=== PATIENT | female | born 1940 | race Caucasian/White ===

== ENCOUNTER 2020-09-13 14:04 | Emergency (ER) | payer OTHER ==
[~2020-09-13] VITALS: Ht 157.5 cm; Wt 89.8 kg
[~2020-09-13 14:04] MED LIST: DESPEC-DM TABL1 EACH PO; DOLOGEN CAPLET1 TAB PO; GILTUSS LIQUID237 M1 PO; ORPH100T PO; TUSSI-PRES LIQ118 ML PO; ULTRAM50 MG PO; ZITHROMAX500 MG PO
== END 2020-09-13 17:54 | disposition home or self-care (01) ==
LOC: ER 14:04
DX: S90.02XA Contusion of left ankle, initial encounter (principal); W06.XXXA Fall from bed, initial encounter; Y93.89 Activity, other specified; Y92.092 Bedroom in other non-institutional residence as the place of occurrence of the external cause; Y99.8 Other external cause status

== ENCOUNTER 2023-10-01 09:10 | Outpatient (CLI) | payer OTHER | END 2023-10-01 09:14 | disposition home or self-care (01) | LOC: SONOGRAMA 09:10 | PROVIDERS: ATTEND Pathology Anatomic Pathology | DX: D34 Benign neoplasm of thyroid gland (principal); E07.89 Other specified disorders of thyroid; E04.1 Nontoxic single thyroid nodule ==

== ENCOUNTER 2025-07-19 13:08 | Emergency (ER) | payer OTHER ==
[~2025-07-19] VITALS: Ht 152.4 cm; Wt 77.1 kg
[~2025-07-19 13:08] MED LIST changes: +LEVOTHYROXINE25 MCG; +LIPITOR20 MG; +MIRALAX510 GM PO; +PEPCID40 MG PO; +PROTONIX40 MG PO
[2025-07-19] MEDS ORDERED: KETOROLAC TROMETHAMINE 30 MG VIAL IM ONE (15:15)
[2025-07-19] MEDS ORDERED: KETOROLAC TROMETHAMINE 30 MG VIAL ONE (15:37)
[2025-07-19 16:14] LABS: BASO % 0.5 % (0.1-1.2); EOS # 0.19 (0.04-0.54); EOS % 1.7 % (0.7-7.0); LYMPH # 2.51 (1.18-3.74); LYMPH % 22.8 % (19.3-53.1); MEAN PLATELET VOLUME 12.00 fl (9.4-12.4); MONO # 0.90 (0.24-0.82); MONO % 8.2 % (4.7-12.5); NEUT # 7.32 (1.56-6.13); RED CELL DISTRIBUTION WIDTH 14.2 % (11.6-14.4)
[2025-07-19 16:30] LABS: ERYTHROCYTE SEDIMENTATION RATE 39 mm/hr (0-30)
[2025-07-19 16:38] LABS: ALT/SGPT 29.0 U/L (12-78); AST/SGOT 25.0 U/L (15-37); BILIRUBIN TOTAL 0.49 mg/dL (0.3-1.2); BUN CREA RATIO 23.0 (7.0-25.0); CREATININE SERUM 1.19 mg/dL (0.55-1.02); GFR 43.43; GLOBULINA 4.4 G/DL (2.4-3.5); GLUCOSE FASTING 108.0 mg/dL (65-100); OSMOLALITY SERUM 292.0 MOSM/KG (275-295)
[2025-07-19 16:45] LABS: LYMPHOCYTE MAN 27.0 %; MONOCYTE MAN 6.0 %; NEUT % 66.6 % (34.0-71.1); NEUTROPHILS MAN 67.0 %
== END 2025-07-19 22:04 | disposition home or self-care (01) ==
LOC: ER 13:08
PROVIDERS: Student in an Organized Health Care Education/Training Program
DX: M19.90 Unspecified osteoarthritis, unspecified site (principal); R22.42 Localized swelling, mass and lump, left lower limb; I10 Essential (primary) hypertension
CPT/HCPCS: 36415; 73610; 96372; 99283; J1885